=== PATIENT | male | born 1985 | race African-American/Black ===

== ENCOUNTER 2016-08-10 17:41 | Emergency (ER) | payer OTHER ==
[2016-08-10] MEDS ORDERED: ONDANSETRON 4 MG TAB.RAPDIS PO ONE (18:18)
--- NOTE | 2016-08-10 18:21 | ER Document Report ---
ED Medical Screen (RME) - General Stated Complaint: QUESTIONABLE FOOD POISONING Time seen by provider: 18:18 Mode of Arrival: Ambulatory Information source: Patient Notes: 30-year-old male normally healthy was eating a apple from [employer] and started to have a bad taste in his mouth. He looked at the apple and it was a rotten inside and a few minutes later around 4pm he started vomiting and he continues to be nauseated. Mild abdominal generalized pain no diarrhea. I have greeted and performed a rapid initial assessment of this patient. A comprehensive ED assessment, evaluation of the patient, analysis of test results , and completion of the medical decision making process will be contacted by additional ED providers. TRAVEL OUTSIDE OF THE [place] IN LAST 30 DAYS: No - Related Data Allergies/Adverse Reactions: No Known Allergies Allergy (Verified 08/10/16 18:19) Past Medical History - Social History Family history: Hypertension - Past Medical History Cardiac Medical History: Reports: Hx Hypertension - Immunizations Immunizations up to date: Yes Hx Diphtheria, Pertussis, Tetanus Vaccination: Yes Physical Exam - Vital signs Vitals: Temp Pulse Resp BP Pulse Ox 98.0 F 84 16 145/92 H 97 08/10/16 17:50 08/10/16 17:50 08/10/16 17:50 08/10/16 17:50 08/10/16 17:50 Course - Vital Signs Vital signs: Temp Pulse Resp BP Pulse Ox 98.0 F 84 16 145/92 H 97 08/10/16 17:50 08/10/16 17:50 08/10/16 17:50 08/10/16 17:50 08/10/16 17:50
[2016-08-10 18:45] LABS: ABSOLUTE EOSINOPHILS # (AUTO) 0.2 10^3/uL (0.0-0.6); ABSOLUTE LYMPHOCYTES (AUTO) 1.6 10^3/uL (0.5-4.7); ABSOLUTE MONOCYTES (AUTO) 1.3 10^3/uL (0.1-1.4); ABSOLUTE NEUT (AUTO) 4.6 10^3/uL (1.7-8.2); BASOPHILS % (AUTO) 0.6 % (0-2); EOSINOPHILS % (AUTO) 3.2 % (0-6); HEMATOCRIT 41.8 % (37.9-51.0); HEMOGLOBIN 13.7 g/dL (13.5-17.0); HGB HCT DIFFERENCE -0.7; LYMPHOCYTES % (AUTO) 20.5 % (13-45); MEAN CORPUSCULAR HEMOGLOBIN 26.2 pg (27.0-33.4); MEAN CORPUSCULAR HGB CONC 32.8 g/dL (32.0-36.0); MEAN CORPUSCULAR VOLUME 80 fl (80-97); MONOCYTES % (AUTO) 16.9 % (3-13); RED BLOOD COUNT 5.25 10^6/uL (4.35-5.55); RED CELL DISTRIBUTION WIDTH 14.3 % (11.5-14.0); SEGMENTED NEUTROPHILS % (AUTO) 58.8 % (42-78); WHITE BLOOD COUNT 7.8 10^3/uL (4.0-10.5)
[2016-08-10 18:49] LABS: APPEARANCE,URINE CLEAR; BILIRUBIN,URINE NEGATIVE (NEGATIVE); GLUCOSE, URINE NEGATIVE (NEGATIVE); KETONES,URINE NEGATIVE (NEGATIVE); LEUKOCYTE ESTERASE,URINE NEGATIVE (NEGATIVE); NITRITE,URINE NEGATIVE (NEGATIVE); PROTEIN,URINE NEGATIVE (NEGATIVE); URINE SPECIFIC GRAVITY 1.027; UROBILINOGEN,URINE NEGATIVE mg/dL (<2.0)
[2016-08-10 18:59] LABS: ALANINE AMINOTRANSFERASE 46 U/L (21-72); ALBUMIN 4.7 g/dL (3.5-5.0); ALKALINE PHOSPHATASE 80 U/L (38-126); ANION GAP 13 (5-19); ASPARTATE AMINO TRANSFERASE 26 U/L (17-59); BILIRUBIN,TOTAL 0.4 mg/dL (0.2-1.3); BLOOD UREA NITROGEN 18 mg/dL (7-20); CALCIUM 9.8 mg/dL (8.4-10.2); CARBON DIOXIDE 27 mmol/L (22-30); CHLORIDE 103 mmol/L (98-107); GLUCOSE 94 mg/dL (75-110); POTASSIUM 4.4 mmol/L (3.6-5.0); SODIUM 143.4 mmol/L (137-145); TOTAL PROTEIN 8.4 g/dL (6.3-8.2)
[2016-08-10] MEDS ORDERED: ONDANSETRON ODT 4 MG TAB (6 TAB/DSPK) PO PRN (20:48)
--- NOTE | 2016-08-10 20:49 | ER Document Report ---
ED General - General Chief Complaint: Nausea/Vomiting Stated Complaint: QUESTIONABLE FOOD POISONING Mode of Arrival: Ambulatory Notes: Patient is a 30-year-old male without past medical history who presents with concerns of possible food poisoning. States the apple appeared to be rotten and immediately thereafter began having episodes of vomiting and epigastric abdominal discomfort. Denies a history of similar symptoms in the past. Notes that he has not vomited since the initial episode of vomiting. Nothing improves or worsens his symptoms. States he was instructed to come here by [facility] after he went there and complained about possibly having any contaminated food that he had purchased there. TRAVEL OUTSIDE OF THE [place] IN LAST 30 DAYS: No - HPI Onset: Just prior to arrival Onset/Duration: Sudden Quality of pain: Cramping Severity: Mild Pain Level: 2 Associated symptoms: Vomiting Exacerbated by: Denies Relieved by: Denies Similar symptoms previously: No Recently seen / treated by doctor: No - Related Data Allergies/Adverse Reactions: No Known Allergies Allergy (Verified 08/10/16 18:19) Past Medical History - General Information source: Patient - Social History Smoking Status: Never Smoker Chew tobacco use (# tins/day): No Frequency of alcohol use: None Drug Abuse: None Lives with: Spouse/Significant other Family History: Reviewed & Not Pertinent Patient has suicidal ideation: No Patient has homicidal ideation: No - Past Medical History Cardiac Medical History: Reports: Hx Hypertension Renal/ Medical History: Denies: Hx Peritoneal Dialysis - Immunizations Immunizations up to date: Yes Hx Diphtheria, Pertussis, Tetanus Vaccination: Yes Review of Systems - Review of Systems Notes: Constitutional: Negative for fever. HENT: Negative for sore throat. Eyes: Negative for visual changes. Cardiovascular: Negative for chest pain. Respiratory: Negative for shortness of breath. Gastrointestinal: Positive for abdominal pain and vomiting Genitourinary: Negative for dysuria. Musculoskeletal: Negative for back pain. Skin: Negative for rash. Neurological: Negative for headaches, weakness or numbness. 10 point ROS negative except as marked above and in HPI. Physical Exam - Vital signs Vitals: Temp Pulse Resp BP Pulse Ox 98.0 F 84 16 145/92 H 97 08/10/16 17:50 08/10/16 17:50 08/10/16 17:50 08/10/16 17:50 08/10/16 17:50 Interpretation: Hypertensive Notes: PHYSICAL EXAMINATION: GENERAL: Well-appearing, well-nourished and in no acute distress. HEAD: Atraumatic, normocephalic. EYES: Pupils equal round and reactive to light, extraocular movements intact, sclera anicteric, conjunctiva are normal. ENT: nares patent, oropharynx clear without exudates. Moist mucous membranes. NECK: Normal range of motion, supple without lymphadenopathy LUNGS: Breath sounds clear to auscultation bilaterally and equal. No wheezes rales or rhonchi. HEART: Regular rate and rhythm without murmurs ABDOMEN: Soft, nontender, normoactive bowel sounds. No guarding, no rebound. No masses appreciated. EXTREMITIES: Normal range of motion, no pitting or edema. No cyanosis. NEUROLOGICAL: No focal neurological deficits. Moves all extremities spontaneously and on command. PSYCH: Normal mood, normal affect. SKIN: Warm, Dry, normal turgor, no rashes or lesions noted. Course - Re-evaluation Re-evalutation: 08/10/16 20:47 Presentation of an overall well-appearing patient in no acute distress with complaints of nausea, vomiting. This occurred immediately after eating what appeared to be a rotten apple and is consistent with likely food contamination. Patient has no abdominal tenderness on exam and specifically no tenderness in the RLQ, LLQ, RUQ. Overall well hydrated on exam. Able to tolerate oral intake here in the emergency department. Low clinical suspicion for any acute life-threatening etiology based on exam and history including acute cholecystitis, SBO, appendicitis, nephrolithiasis, or pylonephritis. CMP without evidence of acute hepatitis or significant dehydration. Will plan for discharge at this time with return precautions and followup recommendations. - Vital Signs Vital signs: Temp Pulse Resp BP Pulse Ox 98.1 F 88 14 132/88 H 100 08/10/16 20:59 08/10/16 20:59 08/10/16 20:59 08/10/16 20:59 08/10/16 20:59 - Laboratory Result Diagrams: 08/10/16 18:25 08/10/16 18:25 Laboratory results interpreted by me: 08/10/16 08/10/16 18:25 18:25 MCH 26.2 L RDW 14.3 H Monocytes % 16.9 H Total Protein 8.4 H Discharge - Discharge Clinical Impression: Food poisoning Qualifiers: Encounter type: initial encounter Injury intent: accidental or unintentional Qualified Code(s): T62.91XA - Toxic effect of unspecified noxious substance eaten as food, accidental (unintentional), initial encounter Vomiting Qualifiers: Vomiting type: unspecified Vomiting Intractability: non-intractable Nausea presence: with nausea Qualified Code(s): R11.2 - Nausea with vomiting, unspecified Condition: Good Disposition: HOME, SELF-CARE Additional Instructions: You have been seen in the Emergency Department (ED) today for nausea and vomiting. Your work up today has not shown a clear cause for your symptoms but is likely related to contaminated apple that you ate. You have been prescribed Zofran; please use as prescribed as needed for your nausea. Follow up with your doctor as soon as possible regarding today's emergent visit and your symptoms of nausea. Return to the Emergency Department (ED) if you develop abdominal pain, bloody vomiting, bloody diarrhea, if you are unable to tolerate fluids due to vomiting , or if you develop other symptoms that concern you.
[2016-08-10 21:02] VITALS: BP 132/88
== END 2016-08-10 21:00 | disposition home or self-care (01) ==
LOC: ER 17:41
DX: T62.8X1A Toxic effect of other specified noxious substances eaten as food, accidental (unintentional), initial encounter (principal); R11.2 Nausea with vomiting, unspecified; R10.13 Epigastric pain; I10 Essential (primary) hypertension
CPT/HCPCS: 99283; 36415; 85025; 80053; 81001; S0119

== ENCOUNTER → 2019-01-01 | Outpatient (CLI) | payer BC ==
--- NOTE | 2019-01-01 18:19 | RADIOLOGY REPORT (SQ) ---
EXAM DESCRIPTION: MRI HEAD COMBO COMPLETED DATE/TIME: 01/01/2019 5:38 pm REASON FOR STUDY: E22.1 HYPERPROLACTINEMIA E22.1 HYPERPROLACTINEMIA COMPARISON: None. TECHNIQUE: Multiplanar imaging includes noncontrasted T1, T2, FLAIR, diffusion with ADC map and post gadolinium contrast T1 sequences. Images stored on PACS. CONTRAST TYPE AND DOSE: 20 mL Dotarem. RENAL FUNCTION: Not indicated. ACR Type II contrast agent associated with few, if any, unconfounded cases of NSF LIMITATIONS: None. FINDINGS: ANATOMY: There is a mass arising from the pituitary fossa. This mass causes the pituitary stalk to be deviated slightly to the left. The mass arises anterior to the stalk. The mass enhance s homogeneously. The mass appears to protrude slightly into the suprasellar cistern. Best image is image 3 series 15 CSF SPACES: Normal in size and contour. No hemorrhage. CEREBRUM: Sulci and gyri normal in size and contour. Normal white matter signal on FLAIR imaging. No evidence of hemorrhage, mass, or extraaxial fluid collection. No abnormal enhancement post contrast. POSTERIOR FOSSA: No signal alteration. No hemorrhage. No edema, masses, or mass effect. Internal alex tory canals, cerebellopontine angles, mastoids normal. No enhancing lesions. No abnormal enhancement post contrast. DIFFUSION IMAGING: Negative for acute or subacute infarction. ORBITS: No masses. Globes normal. PARANASAL SINUSES: No fluid levels. Mucosa normal. OTHER: No other significant finding. IMPRESSION: Pituitary macroadenoma. EVIDENCE OF ACUTE STROKE: NO. TECHNICAL DOCUMENTATION: JOB ID: [id number] [employer] All Rights Reserved Reading location - IP/workstation name: [email or web address]
== END ==
LOC: RAD 15:54
PROVIDERS: ATTEND Internal Medicine Endocrinology, Diabetes & Metabolism
DX: E22.1 Hyperprolactinemia (principal)
CPT/HCPCS: 70553; A9576

== ENCOUNTER 2019-08-08 08:51 | Emergency (ER) | payer BC ==
--- NOTE | 2019-08-08 10:49 | ER Document Report ---
ED ENT - General Chief Complaint: Sinus Pain Stated Complaint: SINUS CONGESTION,ARM PAIN Time Seen by Provider: 08/08/19 10:43 Primary Care Provider: CECILIA MENDEZ MD [Primary Care Provider] - Follow up in 1 week CRISTOPHER LOPEZ DO [ASSOCIATE] - Follow up as needed (if symptoms not improved after antibiotics and steroids) TRAVEL OUTSIDE OF THE [place] IN LAST 30 DAYS: No - HPI Notes: 33-year-old male to the emergency department with complaints of sinus pain and pressure for over a week and a half and sneezing that causes pain to both of his arms and legs. He states that he has not had a fever. He denies any coughing. He denies any chest pain or shortness of breath. He states that he will rapidly sneeze several times in a row and that he has pain in the arms and legs when he does so. He is been taking Mucinex and Sudafed without a lot of relief. - Related Data Allergies/Adverse Reactions: No Known Allergies Allergy (Verified 08/10/16 18:19) Past Medical History - Social History Smoking Status: Never Smoker Frequency of alcohol use: None Drug Abuse: None Lives with: Family Family History: Reviewed & Not Pertinent Patient has suicidal ideation: No Patient has homicidal ideation: No - Past Medical History Cardiac Medical History: Reports: Hx Hypertension Renal/ Medical History: Denies: Hx Peritoneal Dialysis - Immunizations Immunizations up to date: Yes Hx Diphtheria, Pertussis, Tetanus Vaccination: Yes Review of Systems - Review of Systems Constitutional: denies: Chills, Fever EENT: See HPI, Nose congestion, Sinus pressure. denies: Ear pain, Throat pain Cardiovascular: denies: Chest pain, Palpitations, Heart racing, Orthopnea, Dyspnea, Dizziness, Lightheaded Respiratory: denies: Cough, Short of breath Gastrointestinal: denies: Abdominal pain, Diarrhea, Nausea, Vomiting Genitourinary: No symptoms reported Musculoskeletal: See HPI, Muscle pain Skin: No symptoms reported Hematologic/Lymphatic: No symptoms reported Neurological/Psychological: No symptoms reported -: Yes All other systems reviewed and negative Physical Exam - Vital signs Vitals: Temp Pulse Resp BP Pulse Ox 97.5 F 64 18 134/77 H 99 08/08/19 09:04 08/08/19 09:04 08/08/19 09:04 08/08/19 09:04 08/08/19 09:04 Interpretation: Normal - General General appearance: Appears well, Alert In distress: None - HEENT Head: Normocephalic, Atraumatic Eyes: Normal Pupils: PERRL Ears: Normal External canal: Normal Tympanic membrane: Normal. No: Hemotympanum, Injected, Perforation, Purulent effusion Sinus: Frontal - Mild tenderness to palpation over the frontal sinus Nasal: Other - Noted congestion with nasal mucosal edema. No septal hematoma. Mouth/Lips: Normal. No: Angioedema Mucous membranes: Normal Pharynx: Normal. No: Uvular edema, Potential airway comprom. Neck: Normal, Supple. No: Lymphadenopathy, Meningismus - Respiratory Respiratory status: No respiratory distress Chest status: Nontender Breath sounds: Normal. No: Rales, Rhonchi, Wheezing Chest palpation: Normal - Cardiovascular Rhythm: Regular Heart sounds: Normal auscultation Murmur: No - Abdominal Inspection: Normal Distension: No distension Bowel sounds: Normal Tenderness: Nontender Organomegaly: No organomegaly - Neurological Neuro grossly intact: Yes Cognition: Normal Orientation: AAOx4 Johnny Coma Scale Eye Opening: Spontaneous [place] Coma Scale Verbal: Oriented Johnny Coma Scale Motor: Obeys Commands Johnny Coma Scale Total: 15 Speech: Normal Cranial nerves: Normal. No: Facial palsy, Forehead sparing, Gaze palsy, Sensory deficit, Tongue deviation Cerebellar coordination: Normal. No: Gait ataxia Motor strength normal: LUE, RUE, LLE, RLE Additional motor exam normals: Equal mulcher operator. No: Pronator drift Sensory: Normal - Psychological Associated symptoms: Normal affect, Normal mood - Skin Skin Temperature: Warm Skin Moisture: Dry Skin Color: Normal Course - Re-evaluation Re-evalutation: Impression sinusitis. Since it has been going on for over 10 days we will go ahead and start on antibiotics. We will also start on steroids. Likely the arm pain is from violent sneezing. He has no loss of strength in both of his arms or legs. He is fully neurologically intact. He has no midline tenderness to palpation over the neck. We will discharge home. - Vital Signs Vital signs: Temp Pulse Resp BP Pulse Ox 98.0 F 59 L 20 134/92 H 97 08/08/19 10:58 08/08/19 10:58 08/08/19 10:58 08/08/19 10:58 08/08/19 10:58 Discharge - Discharge Clinical Impression: Sinus pain, Nasal congestion Acute sinusitis Qualifiers: Sinusitis location: maxillary Recurrence: non-recurrent Qualified Code(s): J01.00 - Acute maxillary sinusitis, unspecified Condition: Stable Disposition: HOME, SELF-CARE Instructions: Sinusitis ([facility]) Additional Instructions: COMPLETE ANTIBIOTICS AND STEROIDS. IF NOT IMPROVING AFTER RUND OF STEROIDS AND ANTIBIOTICS, FOLLOW UP WITH ENT PROVIDED. PUSH FLUIDS. Prescriptions: Amox Tr/Potassium Clavulanate [Augmentin 875-125 Tablet] 1 tab PO BID 10 Days #20 tablet Methylprednisolone [Medrol Dosepack (4 mg/Tab) 21 Tab/Dosepak] 4 mg PO ASDIR PRN #21 tab.ds.pk PRN Reason: Cetirizine HCl [Zyrtec 10 mg Tablet] 1 tab PO DAILY #30 tablet Referrals: CECILIA MENDEZ MD [Primary Care Provider] - Follow up in 1 week CRISTOPHER LOPEZ DO [ASSOCIATE] - Follow up as needed (if symptoms not improved after antibiotics and steroids)
[2019-08-08 11:00] VITALS: BP 134/92
== END 2019-08-08 11:01 | disposition home or self-care (01) ==
LOC: ER 08:51
DX: J01.00 Acute maxillary sinusitis, unspecified (principal); R09.81 Nasal congestion; J34.89 Other specified disorders of nose and nasal sinuses; R06.7 Sneezing; M79.601 Pain in right arm; M79.602 Pain in left arm; M79.604 Pain in right leg; M79.605 Pain in left leg; I10 Essential (primary) hypertension
CPT/HCPCS: 99283

== ENCOUNTER → 2019-09-10 | Outpatient (CLI) | payer BC ==
--- NOTE | 2019-09-10 17:18 | RADIOLOGY REPORT (SQ) ---
EXAM DESCRIPTION: MRI HEAD COMBO COMPLETED DATE/TIME: 09/10/2019 4:37 pm REASON FOR STUDY: E22.1 HYPERPROLACTINEMIA E22.1 HYPERPROLACTINEMIA COMPARISON: 01/01/2019 TECHNIQUE: Multiplanar imaging includes non-contrasted T1, T2, FLAIR, diffusion with ADC map and pos t gadolinium contrast T1 sequences. Thin sections through the pituitary fossa pre and post contrast. Images stored on PACS. CONTRAST TYPE AND DOSE: 20 mL Dotarem. RENAL FUNCTION: None required. The patient is less than 50 years old. LIMITATIONS: None. FINDINGS: ANATOMY: Normal vascular flow voids. CSF SPACES: Normal in size and contour. No hemorrhage. PITUITARY FOSSA: The previously seen pituitary macroadenoma measuring 1.3 cm in greatest dimension no w measures 8 mm in similar coronal plane of measurement. The previous contact with the optic chiasm is no longer present. The nodule is centered in the right pituitary with the Infundibulum slightly d eviated to the patient's left side. CEREBRUM: Sulci and gyri normal in size and contour. Normal white matter signal on FLAIR imaging. No evidence of hemorrhage, mass, or extraaxial fluid collection. No abnormal parenchymal enhancement po st contrast. POSTERIOR FOSSA: No signal alteration. No hemorrhage. No edema, masses, or mass effect. Internal aud itory canals, cerebello-pontine angles, mastoids normal. No enhancing lesions. ORBITS: No masses. Globes normal. PARANASAL SINUSES: No fluid levels. Mucosa normal. OTHER: No other significant finding. IMPRESSION: The previously seen pituitary macroadenoma measured in greatest dimension in December 2018 n ow measures 8 mm in similar coronal plane of measurement. The previous contact with the optic chiasm is no longer present. The nodule is centered in the right pituitary with the Infundibulum slightly deviated to the patient's left side. TECHNICAL DOCUMENTATION: JOB ID: [id number] [employer]- All Rights Reserved Reading location - IP/workstation name: [email or web address]
== END ==
LOC: RAD 15:31
PROVIDERS: ATTEND Internal Medicine Endocrinology, Diabetes & Metabolism
DX: E22.1 Hyperprolactinemia (principal); D35.2 Benign neoplasm of pituitary gland
CPT/HCPCS: 70553; A9576

== ENCOUNTER 2019-10-10 14:39 | Emergency (ER) | payer BC ==
--- NOTE | 2019-10-10 14:54 | ER Document Report ---
ED Medical Screen (RME) - General Chief Complaint: Rectal Pain Stated Complaint: RECTAL PAIN Time Seen by Provider: 10/10/19 14:49 Primary Care Provider: RIANNA BURLESON MD [Primary Care Provider] - Follow up as needed TRAVEL OUTSIDE OF THE [place] IN LAST 30 DAYS: No - HPI Notes: 10/10/19 14:53 33-year-old male presents to the emergency room for complaints of rectal pain that started approximately 5 days ago after he picked up something heavy. Since that time he has had rectal pain with using the bathroom with bright red bleeding. Has tried [id number] hydrocortisone cream and Epson salts without full relief. No history of hemorrhoids. 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 Denies any numbness or tingling to bilateral lower extremities, no bowel or bladder dysfunction, no saddle anesthesia. I have greeted and performed a rapid initial assessment of this patient. A comprehensive ED assessment and evaluation of the patient, analysis of test results and completion of the medical decision making process will be conducted by additional ED providers. PHYSICAL EXAMINATION: GENERAL: Well-appearing, well-nourished and in no acute distress. Musculoskeletal: Normal range of motion NEUROLOGICAL: Normal speech, normal gait. SKIN: Warm, Dry, normal turgor, no rashes or lesions noted. - Related Data Allergies/Adverse Reactions: No Known Allergies Allergy (Verified 10/10/19 14:48) Past Medical History - Social History Family history: Hypertension - Past Medical History Cardiac Medical History: Reports: Hx Hypertension Renal/ Medical History: Denies: Hx Peritoneal Dialysis - Immunizations Immunizations up to date: Yes Hx Diphtheria, Pertussis, Tetanus Vaccination: Yes Physical Exam - Vital signs Vitals: Temp Pulse Resp BP Pulse Ox 98.0 F 78 14 134/79 H 95 10/10/19 14:42 10/10/19 14:42 10/10/19 14:42 10/10/19 14:42 10/10/19 14:42 Course - Vital Signs Vital signs: Temp Pulse Resp BP Pulse Ox 98.0 F 78 14 134/79 H 95 10/10/19 14:42 10/10/19 14:42 10/10/19 14:42 10/10/19 14:42 10/10/19 14:42 Doctor's Discharge - Discharge Referrals: RIANNA BURLESON MD [Primary Care Provider] - Follow up as needed
[2019-10-10] MEDS ORDERED: LIDOCAINE 2% URO-JET 5 ML KIT MM ONE (15:33)
[2019-10-10] MEDS ORDERED: LIDOCAINE 2% JELLY 30 ML TUBE TOP ONE (15:34)
--- NOTE | 2019-10-10 17:03 | ER Document Report ---
Entered by LALY ANGELO SCRIBE 10/10/19 1554 Acting as scribe for:KASSIE MOYA MD ED General - General Chief Complaint: Rectal Pain Stated Complaint: RECTAL PAIN Time Seen by Provider: 10/10/19 14:49 Primary Care Provider: RIANNA BURLESON MD [NO LOCAL MD] - Follow up as needed Mode of Arrival: Ambulatory Information source: Patient Notes: This 33-year-old male patient presents to the emergency department today with complaints of rectal pain with associated rectal bleeding. He mentions that a few days ago he was moving heavy equipment just prior to these symptoms beginning, so he assumed he caused a hemorrhoid. Patient states he has constant pain which is exacerbated if he sits down. Patient states every time he has a bowel movement when he wipes he notices blood on the toilet paper. Patient states he has tried Preparation H and Epsom salt baths with no relief. TRAVEL OUTSIDE OF THE [place] IN LAST 30 DAYS: No - Related Data Allergies/Adverse Reactions: No Known Allergies Allergy (Verified 10/10/19 14:48) Past Medical History - General Information source: Patient - Social History Smoking Status: Never Smoker Cigarette use (# per day): No Frequency of alcohol use: None Drug Abuse: None Lives with: Family Family History: Reviewed & Not Pertinent Patient has suicidal ideation: No Patient has homicidal ideation: No - Past Medical History Cardiac Medical History: Reports: Hx Hypertension Surgical Hx: Negative - Immunizations Immunizations up to date: Yes Hx Diphtheria, Pertussis, Tetanus Vaccination: Yes Review of Systems - Review of Systems Constitutional: No symptoms reported EENT: No symptoms reported Cardiovascular: No symptoms reported Respiratory: No symptoms reported Gastrointestinal: See HPI, Rectal bleeding, Other - rectal pain Genitourinary: No symptoms reported Male Genitourinary: No symptoms reported Musculoskeletal: No symptoms reported Skin: No symptoms reported Hematologic/Lymphatic: No symptoms reported Neurological/Psychological: No symptoms reported -: Yes All other systems reviewed and negative Physical Exam - Vital signs Vitals: Temp Pulse Resp BP Pulse Ox 98.0 F 78 14 134/79 H 95 10/10/19 14:42 10/10/19 14:42 10/10/19 14:42 10/10/19 14:42 10/10/19 14:42 - Notes Notes: Physical Exam: General: Alert, appears uncomfortable. HEENT: Normocephalic. Atraumatic. PERRLA. Extraocular movements intact. Oropharynx clear. Neck: Supple. Respiratory: No respiratory distress. Abdominal: Normal Inspection. No distension. Rectal (performed with male labor contractor in attendance): Anal exam shows exquisitely tender eroded area in the 3 o'clock knee-chest position. It seems to go into some hemorrhoidal appearing tissue. The area was anesthetized with Urojet lidocaine. When I introduced the tip of the Urojet to palpate the opposite side, he complained of severe pain from the tip of the Urojet palpating. This has been concerned that he may have a proctitis. Extremities: Moves all four extremities. Neurological: Normal cognition. AAOx4. Normal speech. Psychological: Normal affect. Normal Mood. Skin: Warm. Dry. Normal color. Course - Vital Signs Vital signs: Temp Pulse Resp BP Pulse Ox 98.0 F 78 14 134/79 H 95 10/10/19 14:42 10/10/19 14:42 10/10/19 14:42 10/10/19 14:42 10/10/19 14:42 - Laboratory Result Diagrams: 10/10/19 16:42 10/10/19 16:42 Laboratory results interpreted by me: 10/10/19 16:42 Hgb 12.5 L MCH 26.5 L RDW 15.5 H - Consults Dr. Campos Consulted provider: will come to ER - Dr. Campos came to emergency room and evaluated patient. He recommend the patient call the office tomorrow morning for an appointment time this week for further evaluation with anoscope. Discharge - Discharge Clinical Impression: Anal fissure, unspecified Condition: Stable Disposition: HOME, SELF-CARE Additional Instructions: Anal Fissure You have a split in the tissues of the anus, called an anal fissure. This may be due to constipation, or chronic anal irritation. The fissure causes pain during bowel movements. It may bleed when you pass stool. Treat the fissure with warm sitz baths three or four times a day. Clean the anal area carefully -- special cleansing pads (Tucks) may be helpful. Sometimes prescription suppositories are helpful in reducing pain and inflammation. A stool softener (such as Metamucil) will make bowel movements less traumatic. Eat a diet high in fiber (fruits, whole grains), and drink plenty of water. See your doctor if there is profuse bleeding, increasing pain, an enlarging mass, or fever -- or if the symptoms do not resolve after treatment. Your physical exam suggest an erosion into a hemorrhoid. The initial treatment of this is the same as described above for anal fissures. Use a small dab of the lidocaine jelly to numb the area as needed. Call [facility] tomorrow morning to schedule an appointment in the next 2 to 3 days. Forms: Return to Work Referrals: RIANNA BURLESON MD [NO LOCAL MD] - Follow up as needed MYRANDA CAMPOS MD [ACTIVE STAFF] - Follow up tomorrow (Call the office tomorrow morning to schedule an appointment.) I personally performed the services described in the documentation, reviewed and edited the documentation which was dictated to the scribe in my presence, and it accurately records my words and actions.
[2019-10-10 17:09] LABS: ABSOLUTE BASOPHILS # (AUTO) 0.1 10^3/uL (0.0-0.2); ABSOLUTE EOSINOPHILS # (AUTO) 0.3 10^3/uL (0.0-0.6); ABSOLUTE LYMPHOCYTES (AUTO) 2.3 10^3/uL (0.5-4.7); ABSOLUTE MONOCYTES (AUTO) 0.9 10^3/uL (0.1-1.4); ABSOLUTE NEUT (AUTO) 5.8 10^3/uL (1.7-8.2); BASOPHILS % (AUTO) 0.6 % (0-2); EOSINOPHILS % (AUTO) 3.2 % (0-6); HEMATOCRIT 37.9 % (37.9-51.0); HEMOGLOBIN 12.5 g/dL (13.5-17.0); LYMPHOCYTES % (AUTO) 24.8 % (13-45); MEAN CORPUSCULAR HEMOGLOBIN 26.5 pg (27.0-33.4); MEAN CORPUSCULAR VOLUME 81 fl (80-97); MONOCYTES % (AUTO) 9.3 % (3-13); PLATELET COUNT 199 10^3/uL (150-450); RED BLOOD COUNT 4.71 10^6/uL (4.35-5.55); RED CELL DISTRIBUTION WIDTH 15.5 % (11.5-14.0); SEGMENTED NEUTROPHILS % (AUTO) 62.1 % (42-78); TOTAL CELLS COUNTED % (AUTO) 100 %; WHITE BLOOD COUNT 9.3 10^3/uL (4.0-10.5)
[2019-10-10 17:30] LABS: ALBUMIN 3.9 g/dL (3.5-5.0); ALKALINE PHOSPHATASE 66 U/L (38-126); ANION GAP 7 (5-19); ASPARTATE AMINO TRANSFERASE 26 U/L (17-59); BILIRUBIN,DIRECT 0.2 mg/dL (0.0-0.4); BILIRUBIN,TOTAL 0.2 mg/dL (0.2-1.3); BLOOD UREA NITROGEN 19 mg/dL (7-20); CALCIUM 9.1 mg/dL (8.4-10.2); CARBON DIOXIDE 27 mmol/L (22-30); CHLORIDE 104 mmol/L (98-107); GLUCOSE 94 mg/dL (75-110); POTASSIUM 4.4 mmol/L (3.6-5.0)
[2019-10-10 17:35] LABS: C-REACTIVE PROTEIN < 5.0 mg/L (<10.0)
[2019-10-10 17:47] LABS: ERYTHROCYTE SEDIMENTATION RATE 20 mm/hr (0-15)
[2019-10-10 18:09] VITALS: BP 141/87
--- NOTE | 2019-10-10 19:08 | PDOC CONSULTATION ---
Consultation Consult Date: 10/10/19 Attending physician:: LUIS NG Provider Consulted: MYRANDA LOTT Consult reason:: anal pain History of Present Illness Admission Date/PCP: CECILIA MENDEZ MD History of Present Illness: AMAYA ANTON is a 33 year old male Presents emergency department via ground rescue complaining of extreme anal pain. Patient exerted himself while lifting heavy items yesterday. He has had constipation. He denies history of a previous anal pain. Seen in the emergency department was found to have what appeared to be a solitary ulcerated area the anal verge. Surgery was consulted. Past Medical History Cardiac Medical History: Reports: Hypertension Past Surgical History Past Surgical History: Reports: None Social History Lives with: Family Smoking Status: Never Smoker Electronic Cigarette use?: No Hx Recreational Drug Use: No Family History Family History: None, Reviewed & Not Pertinent Parental Family History Reviewed: No Children Family History Reviewed: No Sibling(s) Family History Reviewed.: No Medication/Allergy Home Medications: Amox Tr/Potassium Clavulanate [Augmentin 875-125 Tablet] 1 tab PO BID 10 Days #20 tablet 08/08/19 Cabergoline [Cabergoline 0.5 mg Tablet] 1 tab PO Q3DAYS 08/08/19 Cetirizine HCl [Zyrtec 10 mg Tablet] 1 tab PO DAILY #30 tablet 08/08/19 Methylprednisolone [Medrol Dosepack (4 mg/Tab) 21 Tab/Dosepak] 4 mg PO ASDIR PRN #21 tab.ds.pk 08/08/19 Allergies/Adverse Reactions: No Known Allergies Allergy (Verified 10/10/19 14:48) Review of Systems Constitutional: ABSENT: chills, fever(s), headache(s), weight gain, weight loss Eyes: ABSENT: visual disturbances Ears: ABSENT: hearing changes Cardiovascular: ABSENT: chest pain, dyspnea on exertion, edema, orthropnea, palpitations Respiratory: ABSENT: cough, hemoptysis Gastrointestinal: PRESENT: as per HPI Genitourinary: ABSENT: dysuria, hematuria Musculoskeletal: ABSENT: joint swelling Integumentary: ABSENT: rash, wounds Neurological: ABSENT: abnormal gait, abnormal speech, confusion, dizziness, focal weakness, syncope Physical Exam Vital Signs: Temp Pulse Resp BP Pulse Ox 97.9 F 90 20 141/87 H 99 10/10/19 18:07 10/10/19 18:07 10/10/19 18:07 10/10/19 18:07 10/10/19 18:07 Intake & Output 10/09/19 10/10/19 10/11/19 06:59 06:59 06:59 Weight 111 kg General appearance: PRESENT: no acute distress Head exam: PRESENT: normocephalic Eye exam: PRESENT: EOMI Mouth exam: PRESENT: dry mucosa Neck exam: PRESENT: full ROM Respiratory exam: PRESENT: clear to auscultation [place] Cardiovascular exam: PRESENT: RRR Pulses: PRESENT: normal carotid pulses, normal radial pulses, normal femoral pulses, normal dorsalis pedis pul GI/Abdominal exam: PRESENT: soft Rectal exam: PRESENT: other - Patient examined left lateral cubitus position. P erianal tissue grossly unremarkable. Anal verge spread slightly after lubrication with 2% lidocaine jelly. There is a small vertically oriented minimally ulcerated area approximately 1 cm in diameter in the right lateral position. Rectal examination otherwise unremarkable although limited due to pain. Gross mass appreciated. Extremities exam: PRESENT: full ROM Neurological exam: PRESENT: oriented to person, oriented to place, oriented to time, oriented to situation Psychiatric exam: PRESENT: appropriate affect Skin exam: PRESENT: intact Results Laboratory Results: 10/10/19 16:42 10/10/19 16:42 10/10/19 10/10/19 16:42 16:42 WBC 9.3 RBC 4.71 Hgb 12.5 L Hct 37.9 MCV 81 MCH 26.5 L MCHC 33.0 RDW 15.5 H Plt Count 199 Seg Neutrophils % 62.1 Sodium 137.5 Potassium 4.4 Chloride 104 Carbon Dioxide 27 Anion Gap 7 BUN 19 Creatinine 1.01 Est GFR ( Amer) > 60 Glucose 94 Calcium 9.1 Total Bilirubin 0.2 AST 26 Alkaline Phosphatase 66 C-Reactive Protein < 5.0 Total Protein 8.0 Albumin 3.9 Assessment & Plan - Diagnosis (1) Anal ulcer Is this a current diagnosis for this admission?: Yes Plan: Impression: Acute anal pain related to superficial anal ulcer just at the anal verge, possibly ulcerated hemorrhoid, versus solitary rectal ulcer, though less likely. Doubt true fissure. Symptoms exacerbated by constipation. Recommendations: 1. Reassurance; no indication for immediate duration 2. Sitz bath's, lidocaine jelly, fiber program to combat constipation 3. Follow-up with a general surgery, [facility] in approximately 3 to 4 weeks pending availability at office. 4. The above discussed with Dr. Luis Ng. (2) Constipation Is this a current diagnosis for this admission?: Yes (3) Hypertension Is this a current diagnosis for this admission?: Yes
== END 2019-10-10 18:10 | disposition home or self-care (01) ==
LOC: ER 14:39
DX: K60.2 Anal fissure, unspecified (principal); I10 Essential (primary) hypertension
CPT/HCPCS: 99284; 36415; 85025; 85652; 86140; 80053; J3490